=== PATIENT | male | born 1970 ===

== ENCOUNTER 2019-08-19 15:11 | Outpatient (CLI) | payer OTHER ==
[~2019-08-19 15:11] MED LIST: RECTICARE30 GM TP; ULTRACET PO
== END 2019-08-19 15:19 | disposition home or self-care (01) ==
LOC: LAB 15:11
PROVIDERS: ATTEND Surgery
DX: R97.20 Elevated prostate specific antigen [PSA] (principal)

== ENCOUNTER 2019-08-26 08:07 | Outpatient (CLI) | payer OTHER | END 2019-08-26 08:32 | disposition home or self-care (01) | LOC: SONOGRAMA 08:07 | PROVIDERS: ATTEND Surgery | DX: R97.20 Elevated prostate specific antigen [PSA] (principal) ==